=== PATIENT | female | born 1985 | race Caucasian/White ===

== ENCOUNTER 2016-09-01 02:06 | Emergency (ER) | payer OTHER ==
--- NOTE | 2016-09-01 04:10 | ER Document Report ---
Addendum entered and electronically signed by MATTI JUAREZ NP 22:26: Discharge - Discharge Clinical Impression: Paronychia of fourth toe of right foot, Cellulitis of fourth toe of right foot Disposition: HOME, SELF-CARE Instructions: Paronychia ([facility]) Additional Instructions: CELLULITIS: You have an infection of your skin and underlying soft tissues called cellulitis. This is due to bacteria, which can enter through any break in the skin, or even through an irritated hair follicle. Untreated, cellulitis will usually worsen. Antibiotics are required. Usually, warm packs or warm soaks, and elevation of the infected area are recommended. You should start getting better within 24 to 36 hours. Most infections respond quickly to the right medication. Follow-up care is important, however, to check for abscess (boil) formation, unsuspected foreign body, or resistant infection. If you develop fever, chills, or if the area of infection is becoming rapidly more swollen or painful, call the doctor at once. Epsom Salt Soaks Soak the wound area in a container of warm epsom salt water. If you can't get the wound area into a bucket or adler, use a folded towel soaked in the epsom salt solution and apply to the area. Use clean hot tap water (about the temperature of a very warm bath), mixing in about one (1) teaspoon for every pint of water. Two gallon --> 16 teaspoons Epsom Salts One gallon --> 8 teaspoons Epsom Salts Two quarts --> 4 teaspoons Epsom Salts One quart --> 2 teaspoons Epsom Salts Soak the wound for about 20 minutes while gently moving it around in the water. Repeat this four (4) times a day. Cephalexin The antibiotic you've been prescribed is a member of the cephalosporin class. This type of antibiotic covers a wide variety of infections, including those of the skin, lungs, and urinary tract. It's useful for staph infections. This antibiotic is slightly similar to the penicillin family. In rare cases , a person who is allergic to penicillin will also be allergic to this medication. If you have had a severe allergic reaction to penicillin, and have not taken this antibiotic since that time, notify your doctor. Antibiotics which cover many germs ("broad spectrum" antibiotics) are more likely to cause diarrhea or "yeast" infections. Women prone to vaginal yeast problems may suffer an attack after taking this antibiotic. In infants, oral thrush (white spots "stuck" on the cheek) or yeast diaper rash may result. See your doctor if these problems occur. Call at once if you develop itching, hives , shortness of breath, or lightheadedness. FOLLOW-UP CARE: If you have been referred to a physician for follow-up care, call the physician s office for an appointment as you were instructed or within the next two days. If you experience worsening or a significant change in your symptoms, notify the physician immediately or return to the Emergency Department at any time for re-evaluation. Prescriptions: Cephalexin Monohydrate [Keflex 500 mg Capsule] 500 mg PO QID #20 capsule Forms: Parent Work Note, Return to Work Original Note: ED Medical Screen (RME) - General Chief Complaint: Toe Injury Stated Complaint: RIGHT FOOT TOE PAIN Time seen by provider: 04:06 Mode of Arrival: Ambulatory Information source: Patient Notes: 30-year-old female presents to ED for pain and swelling to the fourth toe on the right foot since 10 PM last night when she went to bed when she woke up at 2 it was swollen. TRAVEL OUTSIDE OF THE [place] 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 denies: Arthritis, CVA, DM, Malignancy, Thyroid Disfunction - Past Medical History Cardiac Medical History: Reports: None Pulmonary Medical History: Reports: Hx Asthma, Hx Pneumonia EENT Medical History: Reports: Other - [facility] Medical History: Reports: None Endocrine Medical History: Reports: None Renal/ Medical History: Reports: None Malignancy Medical History: Reports: None GI Medical History: Reports: Hx Gastroesophageal Reflux Disease Musculoskeltal Medical History: Reports None Skin Medical History: Reports None Psychiatric Medical History: Reports: Hx Anxiety, Hx Depression Traumatic Medical History: Reports: None Infectious Medical History: Reports: None Past Surgical History: Reports: Hx Gynecologic Surgery - colposcopy and leep - Immunizations Immunizations up to date: Yes Hx Diphtheria, Pertussis, Tetanus Vaccination: Yes Review of Systems - Review of Systems Constitutional: No symptoms reported EENT: No symptoms reported Cardiovascular: No symptoms reported Respiratory: No symptoms reported Gastrointestinal: No symptoms reported Genitourinary: No symptoms reported Female Genitourinary: No symptoms reported Musculoskeletal: No symptoms reported Skin: Other - Right fourth toe swelling and red around the nail Hematologic/Lymphatic: No symptoms reported Neurological/Psychological: No symptoms reported Physical Exam - Vital signs Vitals: Temp Pulse Resp BP Pulse Ox 97.9 F 82 16 121/90 H 97 09/01/16 02:14 09/01/16 02:14 09/01/16 02:14 09/01/16 02:14 09/01/16 02:14 Interpretation: Normal - General General appearance: Appears well, Alert - HEENT Head: Normocephalic, Atraumatic Eyes: Normal Pupils: PERRL - Respiratory Respiratory status: No respiratory distress Chest status: Nontender Breath sounds: Normal Chest palpation: Normal - Cardiovascular Rhythm: Regular Heart sounds: Normal auscultation Murmur: No - Abdominal Inspection: Normal Distension: No distension Bowel sounds: Normal Tenderness: Nontender Organomegaly: No organomegaly - Back Back: Normal, Nontender - Extremities General upper extremity: Normal inspection, Nontender, Normal color, Normal ROM , Normal temperature General lower extremity: Normal inspection, Nontender, Normal color, Normal ROM , Normal temperature, Normal weight bearing. No: Keira's sign - Neurological Neuro grossly intact: Yes Cognition: Normal Orientation: AAOx4 Lise Coma Scale Eye Opening: Spontaneous [place] Coma Scale Verbal: Oriented Lise Coma Scale Motor: Obeys Commands Lise Coma Scale Total: 15 Speech: Normal Motor strength normal: LUE, RUE, LLE, RLE Sensory: Normal - Psychological Associated symptoms: Normal affect, Normal mood - Skin Skin Temperature: Warm Skin Moisture: Dry Skin Color: Normal Skin irregularity: Erythema Location of irregularity: Extremities - Right fourth toe Irregularity with: Swelling, Tenderness Course - Vital Signs Vital signs: Temp Pulse Resp BP Pulse Ox 97.9 F 82 16 121/90 H 97 09/01/16 02:14 09/01/16 02:14 09/01/16 02:14 09/01/16 02:14 09/01/16 02:14 Doctor's Discharge - Discharge Clinical Impression: Paronychia Qualifiers: Laterality: right Qualified Code(s): L03.011 - Cellulitis of right finger Condition: Stable Disposition: HOME, SELF-CARE Instructions: Paronychia ([facility]) Additional Instructions: CELLULITIS: You have an infection of your skin and underlying soft tissues called cellulitis. This is due to bacteria, which can enter through any break in the skin, or even through an irritated hair follicle. Untreated, cellulitis will usually worsen. Antibiotics are required. Usually, warm packs or warm soaks, and elevation of the infected area are recommended. You should start getting better within 24 to 36 hours. Most infections respond quickly to the right medication. Follow-up care is important, however, to check for abscess (boil) formation, unsuspected foreign body, or resistant infection. If you develop fever, chills, or if the area of infection is becoming rapidly more swollen or painful, call the doctor at once. Epsom Salt Soaks Soak the wound area in a container of warm epsom salt water. If you can't get the wound area into a bucket or adler, use a folded towel soaked in the epsom salt solution and apply to the area. Use clean hot tap water (about the temperature of a very warm bath), mixing in about one (1) teaspoon for every pint of water. Two gallon --> 16 teaspoons Epsom Salts One gallon --> 8 teaspoons Epsom Salts Two quarts --> 4 teaspoons Epsom Salts One quart --> 2 teaspoons Epsom Salts Soak the wound for about 20 minutes while gently moving it around in the water. Repeat this four (4) times a day. Cephalexin The antibiotic you've been prescribed is a member of the cephalosporin class. This type of antibiotic covers a wide variety of infections, including those of the skin, lungs, and urinary tract. It's useful for staph infections. This antibiotic is slightly similar to the penicillin family. In rare cases , a person who is allergic to penicillin will also be allergic to this medication. If you have had a severe allergic reaction to penicillin, and have not taken this antibiotic since that time, notify your doctor. Antibiotics which cover many germs ("broad spectrum" antibiotics) are more likely to cause diarrhea or "yeast" infections. Women prone to vaginal yeast problems may suffer an attack after taking this antibiotic. In infants, oral thrush (white spots "stuck" on the cheek) or yeast diaper rash may result. See your doctor if these problems occur. Call at once if you develop itching, hives , shortness of breath, or lightheadedness. FOLLOW-UP CARE: If you have been referred to a physician for follow-up care, call the physician s office for an appointment as you were instructed or within the next two days. If you experience worsening or a significant change in your symptoms, notify the physician immediately or return to the Emergency Department at any time for re-evaluation. Prescriptions: Cephalexin Monohydrate [Keflex 500 mg Capsule] 500 mg PO QID #20 capsule Forms: Return to Work, Parent Work Note
[2016-09-01] MEDS ORDERED: CEPHALEXIN 500 MG CAPSULE PO ONE (04:13)
[2016-09-01 04:20] VITALS: BP 111/81
== END 2016-09-01 04:25 | disposition home or self-care (01) ==
LOC: ER 02:06
DX: L03.031 Cellulitis of right toe (principal); M79.674 Pain in right toe(s); F17.210 Nicotine dependence, cigarettes, uncomplicated
CPT/HCPCS: 99283

== ENCOUNTER 2016-10-22 03:20 | Emergency (ER) | payer OTHER ==
[2016-10-22] MEDS ORDERED: ACETAMINOPHEN 325 MG TABLET PO ONE (03:31)
[2016-10-22 03:32] VITALS: BP 125/90
== END 2016-10-22 05:50 | disposition left against medical advice (07) ==
LOC: ER 03:20
DX: Z53.9 Procedure and treatment not carried out, unspecified reason (principal)

== ENCOUNTER 2017-08-31 17:35 | Emergency (ER) | payer SELFPAY ==
--- NOTE | 2017-08-31 19:05 | ER Document Report ---
ED Flu Like - General Chief Complaint: Flu Symptoms Stated Complaint: HEADACHE Time Seen by Provider: 08/31/17 18:47 Mode of Arrival: Ambulatory Information source: Patient Notes: Patient is a 31-year-old female who presents to the ER today for 4 days headache , cough, fatigue, nausea, fever for one day and decreased appetite. took motrin which helped. has not had flu shot. Denies any diarrhea. TRAVEL OUTSIDE OF THE [place] IN LAST 30 DAYS: No - Related Data Allergies/Adverse Reactions: aspirin Allergy (Verified 08/31/17 17:37) Past Medical History - General Information source: Patient - Social History Smoking Status: Current Every Day Smoker Family History: CAD, Hyperlipidemia, Hypertension. denies: Arthritis, COPD, CVA , DM, Malignancy, Thyroid Disfunction Pulmonary Medical History: Reports: Hx Asthma, Hx Pneumonia Renal/ Medical History: Denies: Hx Peritoneal Dialysis GI Medical History: Reports: Hx Gastroesophageal Reflux Disease Psychiatric Medical History: Reports: Hx Anxiety, Hx Depression Past Surgical History: Reports: Hx Gynecologic Surgery - colposcopy and leep - Immunizations Immunizations up to date: Yes Hx Diphtheria, Pertussis, Tetanus Vaccination: Yes Review of Systems - Review of Systems Constitutional: See HPI EENT: See HPI Cardiovascular: No symptoms reported Respiratory: See HPI Gastrointestinal: See HPI Genitourinary: No symptoms reported Female Genitourinary: No symptoms reported Musculoskeletal: No symptoms reported Skin: No symptoms reported Hematologic/Lymphatic: No symptoms reported Neurological/Psychological: No symptoms reported Physical Exam - Vital signs Vitals: Temp Pulse Resp BP Pulse Ox 99.0 F 92 16 117/88 H 100 08/31/17 17:53 08/31/17 17:53 08/31/17 17:53 08/31/17 17:53 08/31/17 17:53 - Notes Notes: PHYSICAL EXAMINATION: GENERAL: Well-appearing and in no acute distress. HEAD: Atraumatic, normocephalic. EYES: Pupils equal round and reactive to light, extraocular movements intact, sclera anicteric, conjunctiva are normal. ENT: ear canals without erythema or foreign body, TMs pearly gonzales with good bony landmarks, nares patent, oropharynx clear without exudates. Moist mucous membranes. NECK: Normal range of motion, supple without lymphadenopathy LUNGS: Rhonchi that clears with coughing, no wheezes rales or rhonchi. HEART: Regular rate and rhythm without murmurs EXTREMITIES: Normal range of motion, no pitting edema. No cyanosis. NEUROLOGICAL: Cranial nerves grossly intact. Normal sensory/motor exams. PSYCH: Normal mood, normal affect. SKIN: Warm, Dry, normal turgor, no rashes or lesions noted Course - Re-evaluation Re-evalutation: 08/31/17 20:12 Flu and strep are negative today. - Vital Signs Vital signs: Temp Pulse Resp BP Pulse Ox 99.0 F 92 16 117/88 H 100 08/31/17 17:53 08/31/17 17:53 08/31/17 17:53 08/31/17 17:53 08/31/17 17:53 Discharge - Discharge Clinical Impression: Viral syndrome Condition: Stable Disposition: HOME, SELF-CARE Additional Instructions: Return immediately for any new or worsening symptoms. Follow up with primary care provider, call tomorrow to make followup appointment. Prescriptions: Azithromycin [Zithromax 250 mg Tablet] 250 mg PO ASDIR PRN #6 tablet PRN Reason: Ondansetron [Zofran Odt 4 mg Tablet] 1 - 2 tab PO Q4H PRN #30 tab.rapdis PRN Reason: For Nausea/Vomiting Referrals: JUNIOR BERMUDEZ MD [Primary Care Provider] - Follow up as needed
[2017-08-31 20:00] LABS: A TYPE INFLUENZA AG NEGATIVE (NEGATIVE); B INFLUENZA AG NEGATIVE (NEGATIVE)
[2017-08-31] MEDS ORDERED: AZITHROMYCIN 250 MG TABLET PO ONE (20:23)
[2017-08-31 20:47] VITALS: BP 113/88
== END 2017-08-31 20:50 | disposition home or self-care (01) ==
LOC: ER 17:35
DX: B34.9 Viral infection, unspecified (principal); R51 Headache; R05 Cough; R11.0 Nausea; R53.83 Other fatigue; R63.0 Anorexia; R50.9 Fever, unspecified; J45.909 Unspecified asthma, uncomplicated; F17.200 Nicotine dependence, unspecified, uncomplicated
CPT/HCPCS: 87070; 87804; 87880; 99283

== ENCOUNTER 2018-04-30 10:44 | Emergency (ER) | payer OTHER ==
[2018-04-30] MEDS ORDERED: ACETAMINOPHEN 325 MG TABLET PO ONE (11:15)
--- NOTE | 2018-04-30 12:01 | RADIOLOGY REPORT (SQ) ---
EXAM DESCRIPTION: ANKLE LEFT COMPLETE COMPLETED DATE/TIME: 04/30/2018 11:42 am REASON FOR STUDY: heard pop, then pain COMPARISON: None. NUMBER OF VIEWS: Three views. TECHNIQUE: AP, lateral, and oblique radiographic images acquired of the left ankle. LIMITATIONS: None. FINDINGS: MINERALIZATION: Normal. BONES: Possible nondisplaced fracture of the distal tip of the fibula. No worrisome bone lesions. JOINTS: No effusions. SOFT TISSUES: Mild soft tissue swelling in the ankle. No radiopaque foreign body. OTHER: No other significant finding. IMPRESSION: Mild soft tissue swelling the ankle. Questionable nondisplaced fracture of the distal t ip of the fibula. Repeat radiographs be obtained in 14 days to evaluate for healing fracture. TECHNICAL DOCUMENTATION: JOB ID: [id number] [employer]- All Rights Reserved Reading location - IP/workstation name: [email or web address]
--- NOTE | 2018-04-30 12:28 | ER Document Report ---
HPI - HPI Pain Level: 4 Notes: Patient is a 32-year-old female who presents with chief complaint of left ankle pain that started last night. Patient reports she was out dancing when the pain started. She thinks she felt a pop. Patient is able to bear weight but it is painful. - REPRODUCTIVE Reproductive: DENIES: : - MUSCULOSKELETAL Musculoskeletal: REPORTS: Extremity pain Past Medical History - General Information source: Patient - Social History Smoking Status: Current Every Day Smoker Chew tobacco use (# tins/day): No Frequency of alcohol use: Social Drug Abuse: None Family History: CAD, Hyperlipidemia, Hypertension. denies: Arthritis, COPD, CVA , DM, Malignancy, Thyroid Disfunction Patient has suicidal ideation: No Patient has homicidal ideation: No Pulmonary Medical History: Reports: Hx Asthma, Hx Pneumonia Renal/ Medical History: Denies: Hx Peritoneal Dialysis GI Medical History: Reports: Hx Gastroesophageal Reflux Disease Psychiatric Medical History: Reports: Hx Anxiety, Hx Depression Past Surgical History: Reports: Hx Gynecologic Surgery - colposcopy and leep - Immunizations Immunizations up to date: Yes Hx Diphtheria, Pertussis, Tetanus Vaccination: Yes Vertical Provider Document - CONSTITUTIONAL Notes: PHYSICAL EXAMINATION: GENERAL: Well-appearing, well-nourished and in no acute distress. HEAD: Atraumatic, normocephalic. EYES: Pupils equal round extraocular movements intact, conjunctiva are normal. ENT: Nares patent NECK: Normal range of motion LUNGS: No respiratory distress Musculoskeletal: Normal range of motion, mild swelling and erythema noted to medial aspect of left ankle, no ecchymosis. Cap refill less than 3 seconds, normal motor and sensation distal to injury. NEUROLOGICAL: Normal speech. PSYCH: Normal mood, normal affect. SKIN: Warm, Dry, normal turgor, no rashes or lesions noted. - INFECTION CONTROL TRAVEL OUTSIDE OF THE [place] IN LAST 30 DAYS: No Course - Re-evaluation Re-evalutation: 04/30/18 12:22 X-ray reveals possible nondisplaced fracture to the distal fibula. Will place patient in Erasmo wrap with ankle stirrup splint as we do not have walking boot available in the emergency department. Patient will be referred to follow-up with orthopedics for a follow-up. - Vital Signs Vital signs: Temp Pulse Resp BP Pulse Ox 98.8 F 92 18 125/93 H 98 04/30/18 11:05 04/30/18 11:05 04/30/18 11:05 04/30/18 11:05 04/30/18 11:05 Procedures - Immobilization Left ankle Pre-Proc Neuro Vasc Exam: Normal Immobilizer type: Erasmo wrap, Ankle stirrup, Crutches Performed by: PCT Post-Proc Neuro Vasc Exam: Normal Alignment checked and good: Yes Discharge - Discharge Clinical Impression: Fracture of fibula, distal, left, closed Qualifiers: Encounter type: initial encounter Fracture morphology: unspecified fracture morphology Qualified Code(s): S82.832A - Other fracture of upper and lower end of left fibula, initial encounter for closed fracture Condition: Stable Disposition: HOME, SELF-CARE Additional Instructions: The x-ray today shows that you may possibly have a nondisplaced fracture of the very tip of the left fibula. Please wear the ankle stirrup splint as we have discussed, use crutches as necessary. Take ibuprofen 600 mg every 6 hours. Follow-up with orthopedics, call them Wednesday to schedule an appointment they may be covered by your [facility] card. Prescriptions: Hydrocodone/Acetaminophen [Hydrocodon-Acetaminophen 5-325] 1 each PO Q4H PRN # 10 tablet PRN Reason: Forms: Special Work Note
[2018-04-30 12:38] VITALS: BP 123/93
== END 2018-04-30 12:37 | disposition home or self-care (01) ==
LOC: ER 10:44
PROC: 2W3RX1Z Immobilization of Left Lower Leg using Splint (ICD-10-PCS; principal; 2018-04-30)
DX: S82.832A Other fracture of upper and lower end of left fibula, initial encounter for closed fracture (principal); M25.572 Pain in left ankle and joints of left foot; X58.XXXA Exposure to other specified factors, initial encounter; Y93.41 Activity, dancing; F17.200 Nicotine dependence, unspecified, uncomplicated; J45.909 Unspecified asthma, uncomplicated
CPT/HCPCS: 99283; 73610; 29515; L1902; L4350

== ENCOUNTER 2018-05-11 10:02 | Emergency (ER) | payer OTHER ==
--- NOTE | 2018-05-11 11:22 | ER Document Report ---
HPI - HPI Patient complains to provider of: Left lateral foot pain Onset: Other - 11 days Onset/Duration: Persistent Quality of pain: Achy Pain Level: 4 Context: Patient states that she was dancing and injured her left ankle 11 days ago. Patient states she did come here for evaluation and was told that she had a fracture. Patient states she does not have money to follow-up with orthopedics and wanted to come here to avoid having to see orthopedics. Patient complains of continued pain with swelling. Patient denies any new injury. Patient states that her employer is requesting a medical clearance for her to return back to work. Associated Symptoms: Other - Left ankle pain Exacerbated by: Standing, Movement, Walking Relieved by: Denies Similar symptoms previously: No Recently seen / treated by doctor: Yes - ROS ROS below otherwise negative: Yes Systems Reviewed and Negative: Yes All other systems reviewed and negative - CONSTITUTIONAL Constitutional: DENIES: Fever, Chills - REPRODUCTIVE Reproductive: DENIES: : - MUSCULOSKELETAL Musculoskeletal: REPORTS: Extremity pain - left ankle fx 04/30/18, Swelling - DERM Skin Color: Ecchymosis Past Medical History - General Information source: Patient - Social History Smoking Status: Current Every Day Smoker Chew tobacco use (# tins/day): No Smoking Education Provided: Yes Frequency of alcohol use: None Drug Abuse: None Occupation: Daycare provider Family History: CAD, Hyperlipidemia, Hypertension. denies: Arthritis, COPD, CVA , DM, Malignancy, Thyroid Disfunction Patient has suicidal ideation: No Patient has homicidal ideation: No Pulmonary Medical History: Reports: Hx Asthma, Hx Pneumonia Renal/ Medical History: Denies: Hx Peritoneal Dialysis GI Medical History: Reports: Hx Gastroesophageal Reflux Disease Psychiatric Medical History: Reports: Hx Anxiety, Hx Depression Past Surgical History: Reports: Hx Gynecologic Surgery - colposcopy and leep - Immunizations Immunizations up to date: Yes Hx Diphtheria, Pertussis, Tetanus Vaccination: Yes Vertical Provider Document - CONSTITUTIONAL Agree With Documented VS: Yes Exam Limitations: No Limitations General Appearance: WD/WN, No Apparent Distress - INFECTION CONTROL TRAVEL OUTSIDE OF THE [place] IN LAST 30 DAYS: No - HEENT HEENT: Atraumatic, Normocephalic - NECK Neck: Normal Inspection - RESPIRATORY Respiratory: No Respiratory Distress - CARDIOVASCULAR Pulses: Normal: Dorsalis pedis - MUSCULOSKELETAL/EXTREMETIES Musculoskeletal/Extremeties: MAEW, Tender - Left ankle tenderness over lateral malleolar area with old appearing ecchymosis, Edema - Trace edema to left ankle , Eccymosis - NEURO Level of Consciousness: Awake, Alert, Appropriate Motor/Sensory: No Motor Deficit - DERM Integumentary: Warm, Dry, No Rash Course - Re-evaluation Re-evalutation: 05/11/18 11:[address] Gonzalez regarding patient's request about a modified work note. Recommends giving patient 1 day off and having her follow-up with primary or orthopedics for work note. Patient encouraged to follow-up with orthopedics for further evaluation. Patient advised to the emergency department does not divide medical clearance for returning back to work after an orthopedic injury. - Vital Signs Vital signs: Temp Pulse Resp BP Pulse Ox 98.2 F 88 16 110/74 98 05/11/18 10:09 05/11/18 10:09 05/11/18 10:09 05/11/18 10:09 05/11/18 10:09 - Diagnostic Test Radiology reviewed: Reports reviewed - Reviewed radiology report from previous ER visit Procedures - Immobilization Left Ankle Pre-Proc Neuro Vasc Exam: Normal Immobilizer type: Erasmo wrap Performed by: PCT Post-Proc Neuro Vasc Exam: Normal Alignment checked and good: Yes Discharge - Discharge Clinical Impression: Hx of fracture of ankle Condition: Stable Disposition: HOME, SELF-CARE Instructions: Avulsion Fracture of the Ankle ([facility]) Additional Instructions: Return immediately for any new or worsening symptoms Followup with your primary care provider, call tomorrow to make a followup appointment Follow-up with orthopedics for further evaluation, call today for an appointment Forms: Smoking Cessation Education, Return to Work Referrals: [facility] ([facility]) [Provider Group] - Follow up tomorrow
[2018-05-11 11:38] VITALS: BP 110/79
== END 2018-05-11 11:43 | disposition home or self-care (01) ==
LOC: ER 10:02
DX: M79.672 Pain in left foot (principal); M25.572 Pain in left ankle and joints of left foot; M79.89 Other specified soft tissue disorders; F17.200 Nicotine dependence, unspecified, uncomplicated; J45.909 Unspecified asthma, uncomplicated; Z87.81 Personal history of (healed) traumatic fracture
CPT/HCPCS: 99283